=== PATIENT | female | born 1990 | race African-American/Black ===

== ENCOUNTER → 2020-03-19 | Outpatient (CLI) | payer BC | LOC: LAB 14:24 | PROVIDERS: ATTEND Family Medicine | DX: Z20.828 Contact with and (suspected) exposure to other viral communicable diseases (principal) ==

== ENCOUNTER → 2020-04-20 | Outpatient (CLI) | payer BC | LOC: LAB 13:54 | PROVIDERS: ATTEND Nurse Practitioner | DX: Z20.828 Contact with and (suspected) exposure to other viral communicable diseases (principal) ==

== ENCOUNTER 2020-07-14 17:58 | Emergency (ER) | payer BC ==
[~2020-07-14] VITALS: Ht 149.9 cm; Wt 90.7 kg
[2020-07-14 19:17] LABS: ABSOLUTE NEUTROPHILS 11.5 thou/uL (1.4-8.2); BASOPHILS 0.3 % (0.0-2.0); EOSINOPHILS 0.2 % (0.0-3.0); HEMOGLOBIN 12.2 gm/dL (12.0-15.0); LYMPHOCYTES 18.2 % (24.0-44.0); MCH 25.8 pg (26.0-34.0); MCHC 31.2 g/dL (28.0-37.0); MCV 82.8 fL (80.0-100.0); PLATELET COUNT 411 thou/uL (150-400); POLYS 76.3 % (36.0-66.0); RBC 4.71 mil/uL (4.20-5.00); RDW 14.7 % (10.5-14.5); WBC 15.1 thou/uL (4.0-11.0)
[2020-07-14 19:41] LABS: ANION GAP 11 mmol/L (7-16); BUN 11 mg/dL (7-18); CALCIUM 9.2 mg/dL (8.5-10.1); CHLORIDE 98 mmol/L (98-107); CO2 26 mmol/L (21-32); GLUCOSE 91 mg/dL (74-106); POTASSIUM 3.6 mmol/L (3.5-5.1); SODIUM 135 mmol/L (136-145)
[2020-07-14 19:46] LABS: ALBUMIN 4.2 g/dL (3.4-5.0); SALICYLATE < 2.8 mg/dL (2.8-20.0); SGOT 17 U/L (15-37); SGPT 25 U/L (14-59); TOTAL BILIRUBIN 0.4 mg/dL (0.2-1.0); TOTAL PROTEIN 8.6 g/dL (6.4-8.2)
[2020-07-14 21:03] LABS: URINE BILIRUBIN 1+ (Negative); URINE BLOOD 1+ (Negative); URINE CLARITY CLEAR; URINE COLOR YELLOW; URINE GLUCOSE-RANDOM* NEGATIVE (Negative); URINE KETONES 3+ (Negative); URINE LEUKOCYTES-REFLEX NEGATIVE (Negative); URINE NITRITE-REFLEX NEGATIVE (Negative); URINE PROTEIN (DIPSTICK) 1+ (Negative); URINE SPECIFIC GRAVITY >= 1.030 (1.005-1.035)
[2020-07-14 21:15] LABS: AMP/METHAMP Negative (Negative); BARBITURATES Negative (Negative); BENZODIAZEPINES Negative (Negative); COCAINE Negative (Negative); METHADONE Negative (Negative); OPIATES Negative (Negative); PCP Negative (Negative)
[2020-07-14 21:17] LABS: BACTERIA-REFLEX 1-9 Few /HPF (None Seen); CASTS None Seen /LPF (None Seen); CRYSTALS None Seen /LPF (None Seen); MUCUS >6 Heavy strn/LPF (None Seen); SQUAMOUS 0-3 Few /LPF (0-3); URINE RBC 3-10 Few /HPF (0-2); URINE WBC-REFLEX 0-5 Rare /HPF (0-5)
[2020-07-15 09:48] VITALS: BP 137/71
== END 2020-07-15 09:50 ==
LOC: ER
PROVIDERS: Emergency Medicine
DX: F29 Unspecified psychosis not due to a substance or known physiological condition (principal); F20.9 Schizophrenia, unspecified; Z20.822 Contact with and (suspected) exposure to COVID-19